=== PATIENT | male | born 1930 | race Caucasian/White ===

== ENCOUNTER 2017-03-24 22:44 | Emergency (ER) | payer MEDICARE, BC ==
--- NOTE | ~2017-03-24 | ER ---
PATIENT'[facility] [place] AGE: 86 Y [address] ROOM: [place] [address] LOCATION: [facility] ADMIT DATE: 03/24/2017 ER/Outpatient Report DISCHARGE DATE: 03/25/2017 FAMILY PHYSICIAN: Iain Ybarra MD ATTENDING PHYSICIAN: Robin Mei TIME SEEN: 2255 hours. CHIEF COMPLAINT: This is an 86-year-old male with multiple medical problems. He is in with complaint of swollen legs. HISTORY OF PRESENT ILLNESS: He reports he has had a gradual onset of swelling in both lower legs over the past 2 days. PAST MEDICAL HISTORY: Significant for hypertension, coronary artery disease. He has had previous stents. He has had DVTs in the past. 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 CURRENT MEDICATIONS: Please see list. He is on oral anticoagulation with Coumadin. PHYSICAL EXAMINATION: GENERAL: Alert, cooperative male, in no acute distress. VITAL SIGNS: Stable. SKIN: Warm and dry. Color is normal. HEAD, EARS, EYES, NOSE, AND THROAT: Normal. NECK: Supple. Neck veins were distended. HEART: Regular rate and rhythm. He had a loud click S1 and a grade 2/6 holosystolic murmur. LUNGS: He had bibasilar rales audible and mild expiratory wheezing. ABDOMEN: Soft and nontender. EXTREMITIES: He had 2+ pitting edema of both lower legs. NEUROLOGIC: Normal. LABORATORY DATA: Comprehensive metabolic profile was unremarkable. CBC was normal. PT was 29.6, INR was 2.79. CBC was unremarkable. BNP was elevated at 1301. EKG revealed a first-degree AV block with no acute ST or T-wave changes. He had intermittent bradycardia. ASSESSMENT: PATIENT'S NAME: [facility] AGE: 86 Y [address] ROOM: [place] [address] LOCATION: [facility] ADMIT DATE: 03/24/2017 ER/Outpatient Report DISCHARGE DATE: 03/25/2017 FAMILY PHYSICIAN: Iain Ybarra MD ATTENDING PHYSICIAN: Robin Mei Lower extremity edema due to congestive heart failure. PLAN: Lasix 20 mg daily, potassium 10 mEq daily, and follow up with Dr. Ybarra in 5-7 days. MD CASSIUS IGNACIO/modl /[id number] d: 03/25/17441 t: 03/26/17 0444, OUTPATIENT REPORT
[2017-03-24 23:32] LABS: BASOPHIL # 0.1 K/uL (0.0-0.2); BASOPHIL % 0.7 %; EOSINOPHIL # 0.3 K/uL (0.0-0.5); EOSINOPHIL % 4.8 %; HEMATOCRIT 39.2 % (33.0-50.0); HEMOGLOBIN 13.3 g/dL (11.0-16.0); IMMATURE GRANULOCYTE % 0.3 %; LYMPHOCYTE # 1.6 K/uL (0.8-4.0); LYMPHOCYTE % 23.3 %; MCH 34.3 pg (27.0-34.0); MCHC 33.9 gm/dL (32.0-36.5); MONOCYTE # 0.9 K/uL (0.0-1.0); MONOCYTE % 12.7 %; MPV 8.3 fl (9.4-12.4); NEUTROPHIL # (ANC) 3.9 K/uL (1.4-9.0); NEUTROPHIL % 58.2 %; NRBC % 0 /100WBC (0-0.00); PLATELET COUNT 191 K/uL (150-450); RBC 3.88 M/uL (3.50-5.50); RDW-CV 12.8 % (11.9-14.6); WBC 6.7 K/uL (4.0-11.0)
[2017-03-24 23:51] LABS: ALBUMIN 2.9 gm/dL (3.5-5.0); ALK PHOS 57 IU/L (33-138); ALT 27 IU/L (12-78); ANION GAP 9.9 (10.0-19.0); AST 22 IU/L (10-40); BLOOD UREA NITROGEN 20 mg/dL (6-24); CALCIUM 7.8 mg/dL (8.5-10.5); CHLORIDE 112 mMol/L (96-110); CO2 25 mMol/L (22-32); CREATININE 1.4 mg/dL (0.6-1.3); ESTIMATED GFR (MDRD EQUATION) 48; POTASSIUM 3.9 mMol/L (3.7-5.1); SODIUM 143 mMol/L (135-145); TOTAL BILIRUBIN 0.3 mg/dL (0.0-1.5); TOTAL PROTEIN 6.4 g/dL (6.0-8.4)
[2017-03-25 00:15] LABS: INR - (THERAPEUTIC) 2.79 (0.92-1.07); PROTIME 29.6 SECONDS (9.8-11.4)
== END 2017-03-25 01:01 | disposition disaster alternative care site (69) ==
LOC: GMED 22:44
PROVIDERS: Emergency Medicine
DX: I11.0 Hypertensive heart disease with heart failure (principal); I50.9 Heart failure, unspecified; I25.10 Atherosclerotic heart disease of native coronary artery without angina pectoris; E78.5 Hyperlipidemia, unspecified; Z79.01 Long term (current) use of anticoagulants; Z88.1 Allergy status to other antibiotic agents; Z88.8 Allergy status to other drugs, medicaments and biological substances

== ENCOUNTER 2017-06-10 04:19 | Emergency (ER) | payer MEDICARE, BC ==
--- NOTE | ~2017-06-10 | ER ---
PATIENT'S NAME: RAHEL PELAYO [facility] AGE: 86 Y [address] ROOM: [place] [address] LOCATION: [facility] ADMIT DATE: 06/10/2017 ER/Outpatient Report DISCHARGE DATE: 06/10/2017 FAMILY PHYSICIAN: Iain Ybarra MD ATTENDING PHYSICIAN: Marco Davies ADDENDUM: I received a hand-off of this patient at 0600 hours. Briefly, this patient has a history of abdominal pain. It has been going on for 3 days. It is located in the right lower quadrant. He is also concerned about pain in his right arm and swelling in his legs. His symptoms have been unchanged since onset. He was seen and evaluated at [facility] recently with CT scan and was scheduled for colonoscopy, but he felt like things were not getting better and was having a bout of pain and decided to come in for evaluation this morning. Review of his labs indicate that his INR is in appropriate therapeutic range. No significant other hematologic abnormalities on labs today. CMS is without appreciable abnormality other than a GFR of 54, amylase and lipase are within normal limits, CRP is undetectable. Urinalysis is not consistent with infection or bleeding, and his lactate is 1.3. CT scan of the abdomen and pelvis was obtained and reviewed by Radiology and reported as diverticulosis without diverticulitis with no other appreciable intraabdominal acute abnormalities. On my personal exam, the patient has tenderness at the insertion of the biceps tendon over the right forearm, which is the exact source of his pain indicating biceps tendinitis. On evaluation of his abdomen, the patient has no significant abdominal pain. Currently, he has a soft, tender abdomen, with no rebound or guarding. The extremities are warm, well formed, with no appreciable edema currently in the ankles. IMPRESSION: 1. Right lower abdominal pain, unclear etiology, recommend colonoscopy as scheduled. Treated with Bentyl today. Follow up with PCP tomorrow. 2. Right biceps tendinitis. Recommend anti-inflammatories currently with Tylenol, NSAIDs would be ideal; however, with the patient's other history, I think that is unwise. Recommend further discussion with PCP. 3. Ankle swelling, no current edema currently. No other evidence of heart failure. Discuss with PCP tomorrow. All questions were answered, and the patient was discharged in stable condition. PATIENT'S NAME: RAHEL PELAYO [facility] AGE: 86 Y [address] ROOM: [place] [address] LOCATION: [facility] ADMIT DATE: 06/10/2017 ER/Outpatient Report DISCHARGE DATE: 06/10/2017 FAMILY PHYSICIAN: Iain Ybarra MD ATTENDING PHYSICIAN: Marco Davies MD NICA ROY/eli /[id number] d: 06/10/17900 t: 06/19/17 1045, OUTPATIENT REPORT
--- NOTE | ~2017-06-10 | ER ---
PATIENT'S NAME: RAHEL PELAYO [facility] AGE: 86 Y [address] ROOM: [place] [address] LOCATION: ED ADMIT DATE: 06/10/2017 ER/Outpatient Report DISCHARGE DATE: FAMILY PHYSICIAN: Iain Ybarra MD ATTENDING PHYSICIAN: Marco Davies Admission date and time documented in the medical record. I saw the patient at 0435 hours. CHIEF COMPLAINT: Low abdominal pain. HISTORY OF PRESENT ILLNESS: This patient is an 86-year-old male, who comes in with lower abdominal pain that he has had at least for about 3 days. It had been pretty constant, does not come and go. Feels like he could be constipated. No nausea, vomiting, or diarrhea. No urinary symptomatology. No fever, chills, sweats, coughs, colds, flus. No chest pain or shortness of breath. No lightheadedness, dizziness, syncope, or near syncope. No headache; eyes ears, nose, throat, neck, or spine pain. No fall or trauma. He has some right arm pain, otherwise no other joint or muscle pain. No skin eruptions or rash. No history of endocrine problems or psych issues. Does have a seizure disorder. HOME MEDICATIONS: See attached medication list. ALLERGIES: ZOSYN, VANCOMYCIN, LEVAQUIN. SOCIAL HISTORY: Nonsmoker, nondrinker. 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 OPERATIONS: Colonoscopy, left inguinal herniorrhaphy, upper eyelid blepharoplasty, cardiac catheterization with PTCA and stenting. REVIEW OF SYSTEMS: [facility] 86 Y [address] ROOM: [place] [address] LOCATION: [facility] ADMIT DATE: 06/10/2017 ER/Outpatient Report DISCHARGE DATE: FAMILY PHYSICIAN: Iain Ybarra MD ATTENDING PHYSICIAN: Marco Davies All systems reviewed by me are negative with the exception of those discussed in the history of the present illness. PHYSICAL EXAMINATION: VITAL SIGNS: Temperature 98.7 tympanic, pulse 73, respirations 16, blood pressure 165/98, O2 sat on room air is 94%. HEAD: Normocephalic. EYES, EARS, NOSE, THROAT: Clear. Mucous membranes moist. NECK: Negative. SPINE: Negative. LUNGS: Clear. Good air flow. No rales, rhonchi, or wheezes. HEART: Regular. Pulses palpable. Chest wall and rib cage pain to palpation. No deformity. ABDOMEN: Soft. Mildly distended. Bowel tones were present. No organomegaly or abnormal masses palpable. The patient has tenderness to palpation of the lower abdomen. No CVA tenderness. EXTREMITIES: With peripheral edema. No cyanosis or deformity. NEUROVASCULAR: Intact. SKIN: Clear. No skin eruptions or rashes. LABORATORY DATA AND X-RAYS: White count is 6000, 52 segs, 27 lymphs, 13 monos, 7 eos, 1 baso. Hemoglobin is 14.6, hematocrit 42.2, platelet count is 193,000. Pro-time is 27.6 with an INR of 2.6. CMS was normal except for a low calcium of 8.1, low GFR of 54. Amylase and lipase were normal. CRP was less than 0.29. Urinalysis was clear. Lactate was 1.3. Three-view abdominal x-ray showed cardiomegaly, no acute infiltrate. There is no perforation. The patient does have air-fluid levels, etiology undetermined at this time. We will proceed with a CT scan of the abdomen and pelvis without contrast to hopefully delineate the air-fluid levels on his plain film. IMPRESSION: 1. Lower abdominal pain, etiology undetermined. He does have air-fluid levels on plain x-ray upright of the abdomen. We will go ahead with a CT scan to see if we can possibly delineate if this is a true ileus, partial ileus, or obstruction and what it might be the cause. 2. Hypertension. 3. Atherosclerotic ischemic heart disease with coronary artery disease. 4. Paroxysmal atrial fibrillation. 5. Deep vein thrombosis. 6. Chronic anticoagulation with Coumadin. 7. Dyslipidemia. 8. Colon polyps. 9. Chronic kidney disease stage 3. 10. History of diverticulosis. PATIENT'S NAME: RAHEL PELAYO [facility] AGE: 86 Y [address] ROOM: [place] [address] LOCATION: [facility] ADMIT DATE: 06/10/2017 ER/Outpatient Report DISCHARGE DATE: FAMILY PHYSICIAN: Iain Ybarra MD ATTENDING PHYSICIAN: Marco Davies PLAN: Transfer the patient's care over to Dr. Del Cid at shift change. I asked Dr. Del Cid to follow up with the patient's CT scan of the abdomen and pelvis results, final diagnosis, and treatment plan. MD JG NARVAEZ/jcl /[id number] d: 06/10/17 0629 t: 06/10/17 1809, OUTPATIENT REPORT
[2017-06-10 05:06] LABS: BILIRUBIN URINE NEGATIVE (NEGATIVE); BLOOD URINE NEGATIVE /UL (NEGATIVE); COLOR URINE YELLOW (YELLOW); GLUCOSE URINE NEGATIVE (NEGATIVE); KETONE URINE NEGATIVE (NEGATIVE); LEUKOCYTES URINE NEGATIVE /UL (NEGATIVE); NITRITE URINE NEGATIVE (NEGATIVE); PROTEIN URINE NEGATIVE (NEGATIVE); TURBIDITY URINE CLEAR (CLEAR); UROBILINOGEN URINE NORMAL (NORMAL)
[2017-06-10 05:11] LABS: BASOPHIL # 0.1 K/uL (0.0-0.2); BASOPHIL % 0.8 %; EOSINOPHIL # 0.4 K/uL (0.0-0.5); EOSINOPHIL % 6.9 %; HEMATOCRIT 42.2 % (33.0-50.0); HEMOGLOBIN 14.6 g/dL (11.0-16.0); IMMATURE GRANULOCYTE % 0.2 %; LYMPHOCYTE # 1.6 K/uL (0.8-4.0); LYMPHOCYTE % 26.7 %; MCHC 34.6 gm/dL (32.0-36.5); MCV 101.2 fl (83.0-98.0); MONOCYTE # 0.8 K/uL (0.0-1.0); MONOCYTE % 13.3 %; MPV 8.4 fl (9.4-12.4); NEUTROPHIL # (ANC) 3.1 K/uL (1.4-9.0); NEUTROPHIL % 52.1 %; NRBC % 0 /100WBC (0-0.00); PLATELET COUNT 193 K/uL (150-450); RBC 4.17 M/uL (3.50-5.50)
[2017-06-10 05:19] LABS: PROTIME 27.6 SECONDS (9.8-11.4)
[2017-06-10 05:32] LABS: ALBUMIN 3.2 gm/dL (3.5-5.0); ALK PHOS 65 IU/L (33-138); ALT 28 IU/L (12-78); ANION GAP 10.3 (10.0-19.0); AST 24 IU/L (10-40); BLOOD UREA NITROGEN 24 mg/dL (6-24); CALCIUM 8.1 mg/dL (8.5-10.5); CHLORIDE 108 mMol/L (96-110); CO2 27 mMol/L (22-32); CREATININE 1.2 mg/dL (0.6-1.3); POTASSIUM 4.3 mMol/L (3.7-5.1); SODIUM 141 mMol/L (135-145); TOTAL BILIRUBIN 0.3 mg/dL (0.0-1.5); TOTAL PROTEIN 6.6 g/dL (6.0-8.4)
== END 2017-06-10 07:10 | disposition disaster alternative care site (69) ==
LOC: GMED 04:19
PROVIDERS: Emergency Medicine
DX: R10.31 Right lower quadrant pain (principal); I12.9 Hypertensive chronic kidney disease with stage 1 through stage 4 chronic kidney disease, or unspecified chronic kidney disease; N18.3 Chronic kidney disease, stage 3 (moderate); M75.21 Bicipital tendinitis, right shoulder; M25.473 Effusion, unspecified ankle; I25.10 Atherosclerotic heart disease of native coronary artery without angina pectoris; I48.0 Paroxysmal atrial fibrillation; G40.909 Epilepsy, unspecified, not intractable, without status epilepticus; E78.5 Hyperlipidemia, unspecified; N40.0 Benign prostatic hyperplasia without lower urinary tract symptoms; Z85.828 Personal history of other malignant neoplasm of skin; Z86.718 Personal history of other venous thrombosis and embolism; Z79.01 Long term (current) use of anticoagulants; Z86.010 Personal history of colon polyps
CPT/HCPCS: J0500